=== PATIENT | male | born 1970 | race American Indian/Alaskan Native ===

== ENCOUNTER 2017-07-22 04:30 | Emergency (ER) | payer SELFPAY ==
[2017-07-22 05:08] LABS: Basophils % (Auto) 0.3 % (0.0-1.8); Eosinophils % (Auto) 1.9 % (0.0-4.3); Hematocrit 51.7 % (35.5-45.6); Hemoglobin 17.8 gm/dl (11.8-15.2); Mean Corpuscular HGB Conc 34 % (32-34); Mean Corpuscular Hemoglobin 33 pg (28-32); Mean Corpuscular Volume 96 fl (84-94); Platelet Count 151 K/mm3 (140-440); Red Blood Count 5.37 M/mm3 (3.65-5.03); Red Cell Distribution Width 14.2 % (13.2-15.2); White Blood Count 7.6 K/mm3 (4.5-11.0)
[2017-07-22 05:26] LABS: Anion Gap 20 mmol/L; BUN/Creatinine Ratio 11.66; Blood Urea Nitrogen 14 mg/dL (9-20); Carbon Dioxide 24 mmol/L (22-30); Chloride 99.6 mmol/L (98-107); Glucose 183 mg/dL (75-100); Potassium 3.9 mmol/L (3.6-5.0); Sodium 140 mmol/L (137-145)
--- NOTE | 2017-07-22 05:42 | Cat Scan Report ---
FINAL REPORT PROCEDURE: CT HEAD/BRAIN WO CON TECHNIQUE: Computerized tomography of the head was performed without contrast material. HISTORY: FELL/LOC/HEAD INJURY COMPARISON: No prior studies are available for comparison. FINDINGS: Skull and scalp: There is soft tissue swelling over the left parietal region of the skull. No skull fracture.. Paranasal sinuses: Normal. Ventricles and subarachnoid spaces: Normal. Cerebrum: No evidence of hemorrhage, acute infarction or mass . Cerebellum and brainstem: No evidence of hemorrhage, acute infarction or mass. Vasculature: Normal. Comments: None. IMPRESSION: There is no evidence of an acute intracranial process. Soft tissue swelling over the left parietal region of the skull.
--- NOTE | 2017-07-22 07:42 | Cat Scan Report ---
CT SCAN OF THE CERVICAL SPINE: HISTORY: Neck pain after fall. TECHNIQUE: Contiguous 1.25 mm axial images of the cervical spine were obtained. Sagittal and coronal reformatted images. FINDINGS: There is normal alignment of the cervical spine. The body, pedicles and posterior ligaments appear normal. No evidence of fracture or subluxation is seen. The spinal canal appears normal. The prevertebral soft tissues appear normal. IMPRESSION: Unremarkable CT of the cervical spine. No acute process is noted.
[2017-07-22] MEDS ORDERED: MOTRIN PO ONE (07:47)
[2017-07-22] MEDS ORDERED: ZOFRAN ODT PO ONE (07:47)
[2017-07-22] MEDS ORDERED: BOOSTRIX IM ONE (09:33)
--- NOTE | 2017-07-22 13:34 | Emergency Department Report ---
ED Head Trauma HPI - General Chief complaint: Head Injury Stated complaint: HEAD INJURY Time Seen by Provider: 07/22/17 07:10 Source: patient Mode of arrival: Ambulatory Limitations: No Limitations - History of Present Illness MD Complaint: head injury -: hour(s) Mechanism of Injury: mechanical fall Location: parietal Loss of Consciousness: unsure Place: home Radiation: none Severity: mild Severity scale (0 -10): 1 Quality: aching Consistency: intermittent Provoking factors: other (alcohol abuse) Other Injuries: none Associated Symptoms: nausea, vomiting. denies: confusion, amnesia, repetitive questioning, vision changes, vertigo, syncope, numbness, weakness, tingling, neck pain - Related Data Previous Rx's Medication Instructions Recorded Last Taken Type HYDROcodone/APAP 7.5-325 [[place] 1 each PO Q8HR PRN #10 tablet 08/18/16 Unknown Rx 7.5-325 mg TAB] Metoprolol [Lopressor TAB] 25 mg PO DAILY #31 tablet 08/18/16 Unknown Rx Pantoprazole Sodium 40 mg PO DAILY #30 tablet.dr 08/18/16 Unknown Rx Triamter/Hctz 37.5-25 mg 1 tab PO QDAY #31 tablet 08/18/16 Unknown Rx [Maxzide-25] Allergies/Adverse reactions: Allergies Allergy/AdvReac Type Severity Reaction Status Date / Time No Known Allergies Allergy Unverified 03/22/15 18:07 ED Review of Systems ROS: Stated complaint: HEAD INJURY Other details as noted in HPI Other: GENERAL: No weight change, fatigue, weakness, fever, chills, or night sweats SKIN: No changes in skin or hair, no itching, no rashes, no jaundice HEAD: head trauma. No visual changes EYES: No blurriness, tearing, itching, acute visual loss, conjunctival discoloration, or scleral icterus EARS: No hearing loss, tinnitus, vertigo, or earache NOSE: No rhinorrhea, stuffiness, sneezing, itching, or epistaxis MOUTH: No bleeding gums, hoarseness, sore throat, or swelling CARDIAC: No new murmur, chest pain, palpitations, dyspnea on exertion, orthopnea , PND, or edema RESPIRATORY: No shortness of breath, wheeze, cough, sputum production, hemoptysis, pneumonia, asthma, bronchitis, or emphysema GI: No change in appetite, nausea, vomiting, dysphagia, change in bowel frequency, diarrhea, constipation, bleeding, hematemesis, melena, hematochezia, or abdominal pain URINARY: No frequency, urgency, polyuria, dysuria, hematuria, or incontinence MUSCULOSKELETAL: No muscle weakness, joint stiffness, decrease in range of motion, redness, swelling NEUROLOGIC: No loss of sensation, numbness, tingling, tremors, weakness, paralysis, seizures HEMATOLOGIC: No anemia, easy bruising, bleeding, petechiae, or purpura ENDOCRINE: No hot or cold intolerance, sweating, polyuria, polydipsia or, polyphagia no thyroid problems PSYCHIATRIC: Reports daily heavy alcohol use. Reports that he is interested in receiving help with quitting. ED Past Medical Hx - Past Medical History Previous Medical History?: Yes Hx Hypertension: Yes Hx Congestive Heart Failure: No Hx Diabetes: No Hx Sickle Cell Disease: Yes (trait) Hx Seizures: Yes (childhood) Hx Asthma: No Hx COPD: No Additional medical history: ULCERATIVE COLITIS. fatty liver. etoh abuse. IBS. Gastritis. hiatal hernia - Surgical History Past Surgical History?: Yes Additional Surgical History: RIGHT ARM SURGERY/ ORTHO - Social History Smoking Status: Current Every Day Smoker Substance Use Type: Alcohol - Medications Home Medications: Home Medications Medication Instructions Recorded Confirmed Last Taken Type HYDROcodone/APAP 7.5-325 [[place] 1 each PO Q8HR PRN #10 tablet 08/18/16 Unknown Rx 7.5-325 mg TAB] Metoprolol [Lopressor TAB] 25 mg PO DAILY #31 tablet 08/18/16 Unknown Rx Pantoprazole Sodium 40 mg PO DAILY #30 tablet.dr 08/18/16 Unknown Rx Triamter/Hctz 37.5-25 mg 1 tab PO QDAY #31 tablet 08/18/16 Unknown Rx [Maxzide-25] ED Physical Exam - General Limitations: No Limitations - Other Other exam information: GENERAL: Patient in no acute distress HEAD: Left parietal hematoma, abrasion overlying skin EYES: PERRLA, EOM intact, no scleral icterus, visual [place] and acuity wnl NOSE: No tenderness, discharge, sinus tenderness MOUTH: No erythema, bleeding, exudate HEART: Regular rate and rhythm, no murmur, S1-S2 are auscultated, pulses are symmetric LUNGS: bilateral breath sounds. No wheezing, rales, rhonchi ABDOMEN: Normal bowel sounds, no tenderness, no rebound, no guarding, no masses , no CVA tenderness MUSCULOSKELETAL: Normal joint range of motion, no redness, no swelling, no tenderness NEUROLOGIC: GCS 15, Alert and Oriented x3, Cranial nerves intact, normal sensation, normal strength, normal gait, no cerebellar deficit PSYCHIATRIC: No homicidal or suicidal ideation, no anxiety, no depression, no hallucinations SKIN: Skin is warm and dry, no wounds, no rashes ED Course Vital Signs 07/22/17 07/22/17 07/22/17 04:37 06:57 07:00 Temperature 98.4 F Pulse Rate 83 Respiratory 18 Rate Blood Pressure 148/101 155/103 O2 Sat by Pulse 98 96 95 Oximetry 07/22/17 07/22/17 07/22/17 07:05 07:11 07:15 Temperature Pulse Rate Respiratory 22 Rate Blood Pressure 155/103 155/103 134/91 O2 Sat by Pulse 95 96 94 Oximetry 07/22/17 07/22/17 07/22/17 11:20 11:26 11:30 Temperature Pulse Rate Respiratory Rate Blood Pressure 120/79 120/79 120/79 O2 Sat by Pulse 96 96 99 Oximetry 07/22/17 07/22/17 07/22/17 11:36 11:40 11:45 Temperature Pulse Rate Respiratory Rate Blood Pressure 120/79 120/79 124/84 O2 Sat by Pulse 97 96 99 Oximetry 07/22/17 07/22/17 07/22/17 11:50 11:56 12:00 Temperature Pulse Rate Respiratory Rate Blood Pressure 124/84 124/84 118/78 O2 Sat by Pulse 98 97 97 Oximetry 07/22/17 07/22/17 07/22/17 12:06 12:10 12:15 Temperature Pulse Rate Respiratory Rate Blood Pressure 118/78 118/78 119/74 O2 Sat by Pulse 98 96 97 Oximetry 07/22/17 07/22/17 07/22/17 12:20 12:26 12:30 Temperature Pulse Rate Respiratory Rate Blood Pressure 119/74 119/74 120/73 O2 Sat by Pulse 97 95 96 Oximetry 07/22/17 07/22/17 07/22/17 12:36 12:40 12:45 Temperature Pulse Rate Respiratory Rate Blood Pressure 120/73 120/73 122/70 O2 Sat by Pulse 94 95 96 Oximetry 07/22/17 07/22/17 07/22/17 12:50 12:56 13:00 Temperature Pulse Rate Respiratory Rate Blood Pressure 122/70 122/70 121/79 O2 Sat by Pulse 95 88 97 Oximetry 07/22/17 07/22/17 07/22/17 13:06 13:10 13:15 Temperature Pulse Rate Respiratory Rate Blood Pressure 121/79 121/79 109/79 O2 Sat by Pulse 94 97 99 Oximetry 07/22/17 07/22/17 07/22/17 13:20 13:26 13:30 Temperature Pulse Rate Respiratory Rate Blood Pressure 109/79 109/79 122/74 O2 Sat by Pulse 98 98 97 Oximetry 07/22/17 07/22/17 07/22/17 13:36 13:40 13:45 Temperature Pulse Rate Respiratory Rate Blood Pressure 122/74 122/74 127/83 O2 Sat by Pulse 97 96 96 Oximetry 07/22/17 07/22/17 07/22/17 13:50 13:56 14:00 Temperature Pulse Rate Respiratory Rate Blood Pressure 127/83 127/83 129/80 O2 Sat by Pulse 96 96 97 Oximetry 07/22/17 07/22/17 07/22/17 14:06 14:10 14:15 Temperature Pulse Rate Respiratory Rate Blood Pressure 129/80 129/80 128/76 O2 Sat by Pulse 96 97 98 Oximetry 07/22/17 07/22/17 07/22/17 14:20 14:26 14:30 Temperature Pulse Rate Respiratory Rate Blood Pressure 128/76 129/80 125/76 O2 Sat by Pulse 97 97 96 Oximetry 07/22/17 07/22/17 07/22/17 14:36 14:40 14:45 Temperature Pulse Rate Respiratory Rate Blood Pressure 125/76 125/76 123/72 O2 Sat by Pulse 94 95 96 Oximetry 07/22/17 07/22/17 07/22/17 14:50 14:56 15:00 Temperature Pulse Rate Respiratory Rate Blood Pressure 123/72 123/72 130/81 O2 Sat by Pulse 96 96 95 Oximetry 07/22/17 07/22/17 07/22/17 15:06 15:10 15:15 Temperature Pulse Rate Respiratory Rate Blood Pressure 130/81 130/81 137/80 O2 Sat by Pulse 96 98 96 Oximetry 07/22/17 07/22/17 15:20 15:26 Temperature Pulse Rate Respiratory Rate Blood Pressure 137/80 123/72 O2 Sat by Pulse 97 97 Oximetry - Lab Data Result diagrams: 07/22/17 04:53 07/22/17 04:53 Lab Results 07/22/17 07/22/17 07/22/17 Range/Units 04:53 04:53 04:53 WBC 7.6 (4.5-11.0) K/mm3 RBC 5.37 H (3.65-5.03) M/mm3 Hgb 17.8 H (11.8-15.2) gm/dl Hct 51.7 H (35.5-45.6) % MCV 96 H (84-94) fl MCH 33 H (28-32) pg MCHC 34 (32-34) % RDW 14.2 (13.2-15.2) % Plt Count 151 (140-440) K/mm3 Lymph % (Auto) 21.5 (13.4-35.0) % [place] % (Auto) 7.3 (0.0-7.3) % Eos % (Auto) 1.9 (0.0-4.3) % Baso % (Auto) 0.3 (0.0-1.8) % Lymph # 1.6 (1.2-5.4) K/mm3 [place] # 0.6 (0.0-0.8) K/mm3 Eos # 0.1 (0.0-0.4) K/mm3 Baso # 0.0 (0.0-0.1) K/mm3 Seg Neutrophils % 69.0 (40.0-70.0) % Seg Neutrophils # 5.2 (1.8-7.7) K/mm3 Sodium 140 (137-145) mmol/L Potassium 3.9 (3.6-5.0) mmol/L Chloride 99.6 (98-107) mmol/L Carbon Dioxide 24 (22-30) mmol/L Anion Gap 20 mmol/L BUN 14 (9-20) mg/dL Creatinine 1.2 (0.8-1.5) mg/dL Estimated GFR > 60 ml/min BUN/Creatinine Ratio 11.66 % Glucose 183 H (75-100) mg/dL Calcium 9.0 (8.4-10.2) mg/dL Plasma/Serum Alcohol 0.30 H (0-0.07) gm% - Radiology Data Radiology results: report reviewed - Medical Decision Making Patient reports to mental health counselor that he is willing to be transferred to a facility that is not within the area for further evaluation. 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 Patient medically clear for transfer. Critical care attestation.: If time is entered above; I have spent that time in minutes in the direct care of this critically ill patient, excluding procedure time. ED Disposition Clinical Impression: Alcohol abuse Closed head injury Qualifiers: Encounter type: initial encounter Qualified Code(s): S09.90XA - Unspecified injury of head, initial encounter Abrasion head Qualifiers: Encounter type: initial encounter Qualified Code(s): S00.91XA - Abrasion of unspecified part of head, initial encounter Disposition: DC/[place]-70 ANOTHER TYPE HLTHCARE Is pt being admited?: No Condition: Stable Referrals: PRIMARY CARE, [Primary Care Provider] - 3-5 Days
[2017-07-22 15:28] VITALS: BP 123/72
[2017-07-22 16:13] LABS: Urine Drugs of Abuse Note Disclamer
[2017-07-22 16:24] LABS: Bacteria,Urine 1+ /HPF (Negative); Bilirubin,Urine NEG (Negative); Blood,Urine SM (Negative); Ketones,Urine NEG (Negative); Leukocyte Esterase,Urine TR (Negative); Mucus,Urine FEW /HPF; Nitrite,Urine NEG (Negative); Urobilinogen,Urine < 2.0 mg/dL (<2.0)
== END 2017-07-22 17:35 | disposition home or self-care (01) ==
LOC: ED 04:30
DX: S00.91XA Abrasion of unspecified part of head, initial encounter (principal); F10.10 Alcohol abuse, uncomplicated; I10 Essential (primary) hypertension; F17.210 Nicotine dependence, cigarettes, uncomplicated; W18.30XA Fall on same level, unspecified, initial encounter; Y93.89 Activity, other specified; Y92.89 Other specified places as the place of occurrence of the external cause; Y99.8 Other external cause status
CPT/HCPCS: 36415; 70450; 72125; 80048; 80307; 81001; 85025; 90471; 90715; 99285; G0480; 80320; Q0162